=== PATIENT | male | born 1960 | race Caucasian/White ===

== ENCOUNTER 2020-03-20 08:35 | Outpatient (CLI) | payer BC, SELFPAY ==
--- NOTE | ~2020-03-20 | XR_ITS ---
EXAMINATION: XR chest 2V 03/20/2020 09:02 INDICATION: Cough and shortness of breath. Fever PROCEDURE: PA and lateral views of the chest COMPARISON: 08/07/2017 FINDINGS: The lungs are clear. The cardiomediastinal silhouette is within normal limits. There are no pleural effusions. There is no pneumothorax suspected. IMPRESSION: 1: NO ACUTE CARDIOPULMONARY DISEASE. Reviewed, dictated and finalized at location A.
[2020-03-20 08:59] LABS: Basophils Absolute Auto 0.1 K/mm3 (0.0-0.1); Basophils Percent Auto 1.3 % (0.2-1.2); Eosinophils Absolute Auto 0.1 K/mm3 (0-0.3); Eosinophils Percent Auto 1.3 % (0-4.4); Hemoglobin 15.8 g/dL (14.0-18.0); Immature Granulocyte Absolute 0.02 K/mm3 (0.00-0.031); Immature Granulocyte Percent A 0.4 % (0-0.5); Lymphocytes Absolute Auto 1.63 K/mm3 (0.9-3.2); Lymphocytes Percent Auto 29.3 % (18.3-44.2); Mean Corpuscular HGB Conc 32.9 g/dl (32-36); Mean Corpuscular Hemoglobin 28.4 pg (26-34); Mean Corpuscular Volume 86.3 fl (80-100); Mean Platelet Volume 9.7 fl (7.4-10.4); Monocytes Absolute Auto 0.4 K/mm3 (0.1-0.6); Monocytes Percent Auto 6.6 % (2.6-8.5); Neutrophils Absolute Auto 3.4 K/mm3 (1.3-6.7); Neutrophils Percent Auto 61.1 % (45.5-73.1); Platelet Count Result 299 k/mm3 (150-375); Red Blood Count 5.56 M/mm3 (4.6-6.20); Red Cell Distribution Width 12.4 % (11.5-14.5); White Blood Count 5.6 K/mm3 (4.5-10.0)
[2020-03-20 09:05] LABS: Alanine Aminotransferase 41 U/L (4-50); Albumin Level 4.4 g/dL (3.5-5.1); Alkaline Phosphatase 62 U/L (38-126); Anion Gap 8 mmol/L (8-16); Aspartate Amino Transferase 35 U/L (17-59); Bilirubin,Total 0.7 mg/dL (0.2-1.3); Blood Urea Nitrogen 19 mg/dL (9-20); Calcium 9.1 mg/dL (8.4-10.2); Carbon Dioxide 26 mmol/L (22-30); Chloride 103 mmol/L (98-107); Cholesterol 304 mg/dL (0-200); Estimated Glomerular Filt Rate > 60; Glucose 106 mg/dL (75-110); HDL Direct 51 mg/dL; Potassium 4.4 mmol/L (3.4-5.0); Sodium 137 mmol/L (137-145); Triglycerides 133 mg/dL (<150)
[2020-03-20 09:16] LABS: LDL Cholesterol Direct 210 mg/dL
[2020-03-20 09:35] LABS: Prostate Specific Antigen 1.2 ng/mL (< OR = 4.0)
[2020-03-20 09:45] LABS: Vitamin D 25 Hydroxy 80.8 ng/mL
[2020-03-25 10:43] LABS: Testosterone Free 53.4 pg/mL (35.0-155.0); Testosterone Total 456 ng/dL (250-1100)
== END 2020-03-20 08:36 | disposition home or self-care (01) ==
LOC: ANHLAB 08:38
PROVIDERS: PCP Family Medicine; Visit Provider Family Medicine
DX: E55.9 Vitamin D deficiency, unspecified (principal); R25.2 Cramp and spasm; R79.89 Other specified abnormal findings of blood chemistry; N40.0 Benign prostatic hyperplasia without lower urinary tract symptoms; E78.2 Mixed hyperlipidemia; R05 Cough
CPT/HCPCS: 36415; 71046; 80048; 80061; 80076; 82306; 83735; 84153; 84402; 84403; 84443; 85025; G0103

== ENCOUNTER 2020-05-04 14:13 | Outpatient (CLI) | payer BC, SELFPAY ==
--- NOTE | 2020-05-09 12:10 | WPDPFTINT ---
PFT Interpretation PFT Interpretation: This PFT met all criteria for ATS standards and reproducibility FEV/FVC post bronchodilator 82% FEV1 98% FVC 85% TLC 85% RV 71% RV/TLC 30% DLCO 90% when adjusted for alveolar volume but not adjusted for hemoglobin Flow volume loops were normal Impression: This is a normal PFT. Clinical correlation is advised.
== END 2020-05-04 14:14 | disposition home or self-care (01) ==
PROVIDERS: PCP Family Medicine; Visit Provider Family Medicine
DX: R05 Cough (principal)
CPT/HCPCS: 94060; 94726; 94729

== ENCOUNTER → 2020-06-28 16:37 | Outpatient (CLI) | payer BC, SELFPAY ==
--- NOTE | ~2020-06-28 | XR_ITS ---
XR chest 2V 06/28/2020 17:58 Indication: Dyspnea. Procedure: 2 view chest Comparison: 03/20/2020 Findings: Heart size normal. There is a subtle right upper lobe infiltrate. Left lung clear. No pleur al effusion or pneumothorax. No acute osseous abnormality. Impression: 1: Subtle right upper lobe infiltrate which may represent atelectasis or developing pneumonia. Reviewed, dictated and finalized at location A. 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
== END ==
PROVIDERS: PCP Family Medicine; Visit Provider Family Medicine
DX: R06.00 Dyspnea, unspecified (principal); R91.8 Other nonspecific abnormal finding of lung field
CPT/HCPCS: 71046

== ENCOUNTER → 2020-07-16 09:34 | Outpatient (CLI) | payer BC, SELFPAY ==
--- NOTE | ~2020-07-16 | XR_ITS ---
EXAMINATION: XR chest 2V 07/16/2020 10:01 INDICATION: Covid19 PROCEDURE: 2 view chest COMPARISON: Comparison to multiple prior studies sequentially, with oldest reviewed study dated 04/05. FINDINGS: The lungs are clear. The cardiomediastinal silhouette is within normal limits. There are no pleural effusions. There is no pneumothorax suspected. IMPRESSION: 1: NO ACUTE CARDIOPULMONARY DISEASE. Reviewed, dictated and finalized at location A. [employer]
== END ==
PROVIDERS: PCP Family Medicine; Visit Provider Nurse Practitioner Family
DX: U07.1 COVID-19 (principal)
CPT/HCPCS: 71046

== ENCOUNTER 2021-11-10 00:55 | Day surgery (SDC) | payer BC, SELFPAY ==
[2021-10-25 13:17] VITALS: BMI 28.0
--- NOTE | 2021-11-09 13:54 | P.HP_ITS ---
History of Present Illness History of Present Illness Consent: Risks, benefits, and alternatives have been discussed and questions answered. Patient agrees to proceed with procedure. Chief complaint: hx of colon polyps Narrative: Watson Flores is a 61 year old male referred for colon cancer screening. He had a tubular adenoma removed 5 years ago. Review of Systems Review of Systems: All systems reviewed & are unremarkable except as noted in HPI and below PMFSH Past Medical History Medical History BMI 28.0-28.9,adult Cough COVID-19 Cramps, muscle, general Dyspnea IBS (irritable bowel syndrome) Family History Family History Father Acute myocardial infarction Hypertension Mother Dementia Sibling No problems noted. 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 Gender identity (if verbalized by the patient): Male Spiritual care concerns: No Meds Home Medications and Allergies Home Medications Medication Instructions Recorded Confirmed Type escitalopram oxalate 10 mg tablet 10 mg PO DAILY #30 tablet 03/23/21 11/10/21 Rx lubiprostone 8 mcg capsule 8 mcg PO BID #60 cap 05/12/21 11/10/21 Rx cholecalciferol (vitamin D3) 125 125 mcg PO DAILY 10/03/21 11/10/21 History mcg (5,000 unit) capsule abmkeqskycjs-Fw-hqtb-minerals 18 1 tablet PO DAILY 10/03/21 11/10/21 History mg-0.4 mg tablet sodium,potassium,mag sulfates 17.5 See Rx Instructions PO .COMPLEX 10/12/21 11/10/21 Rx gram-3.13 gram-1.6 gram oral soln #354 ml Allergies Allergy/AdvReac Type Severity Reaction Status Date / Time amoxicillin Allergy Unknown [place]ushing Verified 11/10/21 07:02 clavulanic acid Allergy Unknown [place] Verified 11/10/21 07:02 levofloxacin Allergy Unknown Unknown Verified 11/10/21 07:02 potassium Allergy Unknown [place] Verified 11/10/21 07:02 Exam Const: General: alert Orientation/consciousness: patient oriented x3 Resp: Auscultation: clear to auscultation bilaterally Cardio: Rhythm: regular rhythm GI: GI Palp: Yes Soft to palpation and No Tenderness to palpation present (GI) Neuro: General: patient oriented x3 Assessment and Plan Assessment and plan (1) Colon cancer screening: Code(s): Z12.11 - Encounter for screening for malignant neoplasm of colon Status: Acute Assessment and Plan: Colonoscopy with possible biopsy or polypectomy or cautery or injection of substances.
[2021-11-10 07:04] VITALS: BP 105/90; PULSE 86; RESP 16; TEMP 35.7; O2SAT 99
[2021-11-10] MEDS: LACTATED RINGERS 1,000 ML 150 ML IV CONT (07:15)
--- NOTE | 2021-11-10 07:44 | P.PNAN_ITS ---
Anes - Initial Pre Proc Eval Procedure: Operation Date: 11/10/21 08:00 Proposed Procedures p Screening Colonoscopy - Daljit Mckay MD Date/Time: 11/10/21 07:44 Surgeon: Daljit Mckay MD Pre Op Diagnosis: hx of colon polyps Patient Data Age: 61 Gender: M Height: 1.75 m Weight: 87 kg Last Vital Signs Temp 35.7 C L 11/10/21 07:04 Pulse 86 11/10/21 07:04 Resp 16 11/10/21 07:04 BP 105/90 11/10/21 07:04 Pulse Ox 99 11/10/21 07:04 Allergies Allergy/AdvReac Type Severity Reaction Status Date / Time amoxicillin Allergy Unknown Flushing Verified 11/10/21 07:02 clavulanic acid Allergy Unknown [place] Verified 11/10/21 07:02 levofloxacin Allergy Unknown Unknown Verified 11/10/21 07:02 potassium Allergy Unknown Flushing Verified 11/10/21 07:02 Home Medications Medication Instructions Recorded Confirmed Type escitalopram oxalate 10 mg tablet 10 mg PO DAILY #30 tablet 03/23/21 11/10/21 Rx lubiprostone 8 mcg capsule 8 mcg PO BID #60 cap 05/12/21 11/10/21 Rx cholecalciferol (vitamin D3) 125 125 mcg PO DAILY 10/03/21 11/10/21 History mcg (5,000 unit) capsule wvtvzudgjuja-Rb-brwe-minerals 18 1 tablet PO DAILY 10/03/21 11/10/21 History mg-0.4 mg tablet sodium,potassium,mag sulfates 17.5 See Rx Instructions PO .COMPLEX 10/12/21 11/10/21 Rx gram-3.13 gram-1.6 gram oral soln #354 ml Patient hx anesthesia problems: none Family hx anesthesia problems: none Results Review: All pre-operative results and documents have been reviewed as part of the pre-operative evaluation. [facility] Past Medical History Medical History BMI 28.0-28.9,adult IBS (irritable bowel syndrome) Mixed hyperlipidemia Family History Family History Father Acute myocardial infarction Hypertension Mother Dementia Sibling No problems noted. 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 Informed Consent: The patient's anesthetic plan and its attendant risks and benefits were discussed with the patient/family/POA. Questions were solicited and answers provided to the satisfaction of the patient/family/POA.
[2021-11-10 08:13] VITALS: BP 90/65; PULSE 72; RESP 17; O2SAT 99
[2021-11-10 08:23] VITALS: BP 101/73; PULSE 71; RESP 17; O2SAT 99
[2021-11-10 08:33] VITALS: BP 139/97; PULSE 70; RESP 22; O2SAT 100
== END 2021-11-10 08:47 | disposition home or self-care (01) ==
PROVIDERS: PCP Family Medicine; Visit Provider Internal Medicine Gastroenterology
PROC: 0DJD8ZZ Inspection of Lower Intestinal Tract, Via Natural or Artificial Opening Endoscopic (ICD-10-PCS; CPT 45378; principal; 2021-11-10 08:00)
DX: Z12.11 Encounter for screening for malignant neoplasm of colon (principal); D12.0 Benign neoplasm of cecum; K58.9 Irritable bowel syndrome, unspecified; K57.30 Diverticulosis of large intestine without perforation or abscess without bleeding; K64.8 Other hemorrhoids; F17.290 Nicotine dependence, other tobacco product, uncomplicated
CPT/HCPCS: 45385; 88305; J2704; J7120

== ENCOUNTER 2021-11-16 19:04 | Emergency (ER) | payer BC, SELFPAY ==
--- NOTE | ~2021-11-16 | CT_ITS ---
EXAMINATION: CTA chest PE protocol DATE: 11/16/2021 21:34 INDICATION: dyspnea and elevated d dimer TECHNIQUE: Computed tomography angiography (CTA) of the chest was performed with 100 mL Omnipaque-350 intravenous contrast timed to evaluate the pulmonary arteries. Coronal maximum intensity projection 3D-reconstructions were created by the technologist. The dose-length product (DLP) was 389.97 mGy-cm. Automated exposure control and iterative reconstruction technique were employed. COMPARISON: X-ray chest, same date. FINDINGS: Study quality: Adequate. Pulmonary arteries: No pulmonary emboli detected. Thoracic aorta: Mild calcified and noncalcified arch plaque. Lung parenchyma and airways: Scattered groundglass opacities, taking on a somewhat gravitational/depe ndent distribution. Thoracic inlet, axillae and chest wall: Unremarkable. Mediastinum: Subcarinal and bilateral hilar lymphadenopathy. Heart and pericardium: Normal. Coronary artery calcifications: Absent. Pleura: Unremarkable. Upper abdomen: Cholecystectomy. Bones: No acute osseous finding. Old lower thoracic superior endplate deformity. IMPRESSION: No CT evidence of acute pulmonary embolus. Pulmonary findings may reflect very mild pulmonary edema, noting that acute hypersensitivity and atypical infection could appear similar. Mediastinal and hilar lymphadenopathy. Reviewed, dictated and finalized at location K.
--- NOTE | ~2021-11-16 | XR_ITS ---
EXAMINATION: XR chest 1V portable Exam Date/Time: 11/16/2021 19:20 CDT CLINICAL HISTORY: cough,DIZZY,SWEATS,VOMIT,WEAKNESS,XYESTERDAY,NO HX Comparison: 07/16/2020. RESULT: Lines, tubes, and devices: None. Lungs and pleura: Clear. Cardiomediastinal silhouette: Stable cardiomediastinal silhouette. Other: No acute osseous or upper abdominal finding. IMPRESSION: No acute cardiopulmonary process Reviewed, dictated and finalized at location K.
[2021-11-16 19:07] VITALS: BP 98/65; PULSE 110; RESP 16; TEMP 36.1; O2SAT 95
[2021-11-16 19:14] VITALS: PULSE 100
[2021-11-16 19:16] VITALS: BP 123/83; PULSE 100; RESP 22; O2SAT 95
--- NOTE | 2021-11-16 19:17 | ECG_ITS ---
Measurements Intervals [place] Rate: 89 P: 48 MI: 161 QRS: 28 QRSD: 89 T: 40 QT: 352 QTc: 430 Interpretive Statements SINUS RHYTHM NORMAL ECG Electronically Signed On 11-17-2021 6:34:54 CDT by Ga Messer D.O.
--- NOTE | 2021-11-16 19:18 | ED.WEAKNESS ---
HPI - Weakness General Chief complaint: Weakness Stated complaint: DIAPHORESIS,WEAK,N/V Time Seen by Provider: 11/16/21 19:12 Source: RN notes reviewed History of Present Illness HPI Narrative: Patient presents emergency department from home for weakness. Patient states he has not been feeling well for the past 2 days. He states has been having dizziness with ambulation he also states has been having a cough this been productive of yellow sputum. He states that he had 1 episode of posttussive emesis yesterday while at work he states he has had COVID 19 twice in the past but has not had COVID vaccinations he states he does currently use e-cigarettes he denies any measured fevers or chills, denies chest pain abdominal pain or diarrhea states he does feel short of breath. He denies having any abdominal pain Related Data Home Medications Medication Instructions Recorded Confirmed cholecalciferol (vitamin D3) 125 125 mcg PO DAILY 10/03/21 11/10/21 mcg (5,000 unit) capsule xzstlhuypdyb-Mp-vypd-minerals 18 1 tablet PO DAILY 10/03/21 11/10/21 mg-0.4 mg tablet Allergies Allergy/AdvReac Type Severity Reaction Status Date / Time amoxicillin Allergy Unknown Flushing Verified 11/16/21 19:11 clavulanic acid Allergy Unknown [place] Verified 11/16/21 19:11 levofloxacin Allergy Unknown Unknown Verified 11/16/21 19:11 potassium Allergy Unknown [place]ushing Verified 11/16/21 19:11 Review of Systems Review of Systems: Gen.: Denies fevers or chills Eyes: Denies eye pain or visual change ENT: Denies congestion Respiratory: See HPI CV: Denies chest pain or palpitations GI: Denies abdominal pain diarrhea, reports nausea vomiting x1 yesterday Musculoskeletal: Denies back pain or muscle pain Neuro: Denies numbness, tingling, weakness or focal weakness Skin: Denies rash Except as documented, all other systems reviewed and negative PMFSH Past Medical History Medical History BMI 28.0-28.9,adult IBS (irritable bowel syndrome) Mixed hyperlipidemia Family History Family History Father Acute myocardial infarction Hypertension Mother Dementia Sibling No problems noted. 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 CARDIOVASCULAR: Regular rate and rhythm without murmurs rubs or gallops. ABDOMINAL: Soft, nontender, nondistended, no rebound or guarding MUSCULOSKELETAl: Moves all extremities. No clubbing, cyanosis or edema. NEURO: Awake and alert. Following commands, speech normal, no focal deficits SKIN:: Warm, dry. No rashes lesions or abrasions PSYCHIATRIC: Normal affect/mood, Course Course Emergency Course: Patient feeling better at this time Discussed with patient results of workup and diagnosis. Discussed need for follow-up with primary care, proper use of medication, and reasons to return to the emergency department. Patient understands and agrees to current treatment plan Vital Signs Vital signs: Vital Signs Temperature 97 F L 11/16/21 19:07 Pulse Rate 110 H 11/16/21 19:07 Respiratory Rate 16 11/16/21 19:07 Blood Pressure 98/65 L 11/16/21 19:07 Pulse Oximetry 95 11/16/21 19:07 Temperature 97 F L 11/16/21
[2021-11-16] MEDS: SODIUM CHLORIDE 0.9% IV 1,000 ML 999 ML IV CONT ×2 (19:44→23:33)
[2021-11-16 19:46] LABS: Basophils Absolute Auto 0.1 K/mm3 (0.0-0.1); Basophils Percent Auto 1.5 % (0.2-1.2); Eosinophils Absolute Auto 0.3 K/mm3 (0-0.3); Eosinophils Percent Auto 4.7 % (0-4.4); Hematocrit 41.8 % (42.0-52.0); Hemoglobin 13.8 g/dL (14.0-18.0); Immature Granulocyte Absolute 0.01 K/mm3 (0.00-0.031); Immature Granulocyte Percent A 0.2 % (0-0.5); Lymphocytes Absolute Auto 1.38 K/mm3 (0.9-3.2); Mean Corpuscular Volume 87.8 fl (80-100); Mean Platelet Volume 10.4 fl (7.4-10.4); Monocytes Absolute Auto 0.5 K/mm3 (0.1-0.6); Monocytes Percent Auto 9.1 % (2.6-8.5); Neutrophils Absolute Auto 3.3 K/mm3 (1.3-6.7); Neutrophils Percent Auto 59.5 % (45.5-73.1); Platelet Count Result 269 k/mm3 (150-375); Red Blood Count 4.76 M/mm3 (4.6-6.20); Red Cell Distribution Width 12.2 % (11.5-14.5); White Blood Count 5.5 K/mm3 (4.5-10.0)
[2021-11-16 19:54] LABS: Prothrombin Time 13.1 Seconds (11.1-14.7)
[2021-11-16 19:59] LABS: Alanine Aminotransferase 30 U/L (6-50); Albumin Level 4.1 g/dL (3.5-5.1); Alkaline Phosphatase 67 U/L (38-126); Anion Gap 11 mmol/L (8-16); Aspartate Amino Transferase 31 U/L (17-59); Bilirubin,Total 0.2 mg/dL (0.2-1.3); Blood Urea Nitrogen 22 mg/dL (9-20); Calcium 8.5 mg/dL (8.4-10.2); Carbon Dioxide 21 mmol/L (22-30); Chloride 107 mmol/L (98-107); Estimated CRCL calculation 50 ml/min; Estimated Glomerular Filt Rate 52; Glucose 138 mg/dL (65-110); Lipase 93 U/L (23-300); Potassium 3.6 mmol/L (3.4-5.0); Sodium 139 mmol/L (137-145)
[2021-11-16 20:00] LABS: Lactic Acid Reflex 1.8 mmol/L (0.7-2.0)
[2021-11-16 20:45] LABS: Influenza A QL RT-PCR Negative (Negative); Influenza B QL RT-PCR Negative (Negative); SARS-CoV-2 RNA PCR Negative
[2021-11-16 20:58] LABS: Appearance Urine Clear (Clear); Bilirubin Urine Negative (Negative); Blood Urine Trace-lysed (Negative); Color Urine Yellow (Yellow); Glucose Urine UA Negative (Negative); Ketones Urine Trace mg/dL (Negative); Leukocyte Esterase Ur Negative LEU/UL (Negative); Nitrate Urine Negative (Negative); Protein Urine Negative (Negative); Specific Grav Ur 1.025 (1.001-1.035); Urobilinogen Urine 0.2 mg/dL (<2.0); pH Urine 5.5 (5.0-9.0)
[2021-11-16 21:01] LABS: Bacteria Urine Trace /hpf; Mucus Urine Few /lpf; Squamous Epithelial Cell Urine Rare /hpf (Few)
[2021-11-16 21:02] LABS: Add Urine Microscopic? YES
[2021-11-16 21:13] LABS: D Dimer 0.66 ug/mL (<0.48)
[2021-11-16 21:51] VITALS: BP 152/92; PULSE 80
[2021-11-16 21:52] VITALS: BP 164/95; PULSE 82
[2021-11-16 21:55] VITALS: BP 155/96; PULSE 88
[2021-11-16 22:28] LABS: NT Pro B Type Natriuretic Pept 79 pg/mL (5-100); Troponin I 0.025 ng/mL (0.000-0.034)
[2021-11-16 23:19] LABS: Troponin I < 0.012 ng/mL (0.000-0.034)
[2021-11-16] MEDS: ACETAMINOPHEN 500 MG TABLET 1000 MG PO (23:56)
[2021-11-17] MEDS: DOXYCYCLINE HYCLATE 100 MG TABLET PO (00:16)
[2021-11-17 00:54] VITALS: BP 120/72; PULSE 72; RESP 16; O2SAT 100
== END 2021-11-17 00:56 | disposition home or self-care (01) ==
PROVIDERS: Emergency Provider Emergency Medicine; PCP Family Medicine
DX: J18.9 Pneumonia, unspecified organism (principal); N28.9 Disorder of kidney and ureter, unspecified; Z20.822 Contact with and (suspected) exposure to COVID-19; Z86.16 Personal history of COVID-19; Z28.310 Unvaccinated for COVID-19; E78.2 Mixed hyperlipidemia; K58.9 Irritable bowel syndrome, unspecified; Z87.891 Personal history of nicotine dependence
CPT/HCPCS: 36415; 71045; 71275; 80053; 81001; 83605; 83690; 83880; 84484; 85025; 85380; 85610; 85730; 87040; 87502; 93005; 96360; 96361; 99284; A9270; C9803; J7030; Q9967; U0003; U0005

== ENCOUNTER → 2021-11-30 15:38 | Outpatient (CLI) | payer BC, SELFPAY ==
--- NOTE | ~2021-11-30 | XR_ITS ---
EXAMINATION: XR chest 2V 11/30/2021 15:45 INDICATION: Dyspnea. Dehydration. PROCEDURE: 2 view chest COMPARISON: Comparison to multiple prior studies sequentially, with oldest reviewed study dated 03/20. FINDINGS: The lungs are clear. The cardiomediastinal silhouette is within normal limits. There are no pleural effusions. There is no pneumothorax suspected. IMPRESSION: 1: NO ACUTE CARDIOPULMONARY DISEASE. Reviewed, dictated and finalized at location A.
== END ==
PROVIDERS: PCP Family Medicine; Visit Provider Nurse Practitioner Family
DX: E86.0 Dehydration (principal); J06.9 Acute upper respiratory infection, unspecified
CPT/HCPCS: 71046

== ENCOUNTER → 2022-01-27 14:20 | Outpatient (CLI) | payer BC, SELFPAY ==
--- NOTE | ~2022-01-27 | MR_ITS ---
EXAMINATION: MR knee LT wo con DATE: 01/27/2022 14:52 INDICATION: Primary osteoarthritis of left knee. Left knee pain. TECHNIQUE: Magnetic resonance imaging (MRI) of the left knee was performed without intravenous contra st. COMPARISON: Left knee MRI 04/14/2011 FINDINGS: Medial compartment: There is an upper surface horizontal tear of body and posterior horn of medial meniscus. There is ful l-thickness cartilage loss of tibial condyle anteromedially with mild subchondral edema-like marrow s ignal intensity. There is extensive partial thickness cartilage loss of tibial condyle and femoral co ndyle. There is full-thickness cartilage loss of femoral condyle medially with moderate subchondral e quan-like marrow signal intensity. Osteophytes are noted. Lateral compartment: There is a vertical tear of posterior horn of lateral meniscus. There is shallow partial-thickness ca rtilage loss of tibial condyle and femoral condyle. Osteophytes are noted. Patellofemoral compartment: There is deep partial thickness cartilage loss of patellar medial facet. There is deep cartilage fiss uring of patellar lateral facet. There is deep partial thickness cartilage loss of central and medial trochlea. Osteophytes are noted. Ligaments and tendons: There are changes of anterior cruciate ligament reconstruction. The graft is intact. Posterior crucia te ligament is intact. Medial collateral ligament and lateral collateral ligament complex are intact. There is mild patellar tendinopathy. There is a graft donor site involving the middle third of serna lar tendon. Fluid: There is a small knee joint effusion. There is mild superficial infrapatellar bursitis. IMPRESSION: 1. Severe chondrosis of medial compartment, moderate chondrosis of patellofemoral compartment, and mi ld chondrosis of lateral compartment. 2. Tears of medial and lateral menisci. 3. Intact anterior fusion ligament reconstruction. 4. Small knee joint effusion. Reviewed, dictated and finalized at location A. IMPRESSION: 1. Severe chondrosis of medial compartment, moderate chondrosis of patellofemor al compartment, and mild chondrosis of lateral compartment. 2. Tears of medial and lateral menisci. 3. Intact anterior fusion ligament reconstruction. 4. Small knee joint effusion.
== END ==
PROVIDERS: PCP Family Medicine
DX: M17.12 Unilateral primary osteoarthritis, left knee (principal); M22.2X2 Patellofemoral disorders, left knee; S83.242A Other tear of medial meniscus, current injury, left knee, initial encounter; S83.282A Other tear of lateral meniscus, current injury, left knee, initial encounter; M25.462 Effusion, left knee
CPT/HCPCS: 73721

== ENCOUNTER 2022-10-11 12:34 | Outpatient (CLI) | payer BC, SELFPAY ==
--- NOTE | ~2022-10-11 | XR_ITS ---
EXAMINATION: XR chest 2V Exam Date/Time: 10/11/2022 12:50 CDT HISTORY: Z01.818 - PRE OP CHECK UP FOR KNEE SURGERY Comparison: 11/30/2021. RESULT: Lines, tubes, and devices: Cholecystectomy clips. Lungs and pleura: Clear. Cardiomediastinal silhouette: Stable. Prominent central pulmonary arteries as can be seen with pulmo nary arterial hypertension. Other: No acute osseous or upper abdominal finding. IMPRESSION: No acute cardiopulmonary process. Reviewed, dictated and finalized at location K.
--- NOTE | 2022-10-11 13:26 | ECG_ITS ---
Measurements Intervals [place] Rate: 69 P: 46 VT: 154 QRS: 1 QRSD: 90 T: 4 QT: 379 QTc: 406 Interpretive Statements SINUS RHYTHM INFERIOR MYOCARDIAL INFARCTION , PROBABLY OLD WITH POSTERIOR EXTENSION [40+ ms Q WAVE AND/OR ST/T ABNORMALITY IN II/aVFPROMINE ABNORMAL ECG COMPARED TO ECG 11/16/2021 20:19:59 MYOCARDIAL INFARCT FINDING NOW PRESENT Electronically Signed On 10-11-2022 13:54:52 CDT by Phong Larios M.D.
[2022-10-11 14:06] LABS: Basophils Absolute Auto 0.1 K/mm3 (0.0-0.1); Basophils Percent Auto 1.6 % (0.2-1.2); Eosinophils Absolute Auto 0.2 K/mm3 (0-0.3); Eosinophils Percent Auto 3.8 % (0-4.4); Hematocrit 44.3 % (42.0-52.0); Hemoglobin 14.9 g/dL (14.0-18.0); Immature Granulocyte Absolute 0.01 K/mm3 (0.00-0.031); Immature Granulocyte Percent A 0.2 % (0-0.5); Lymphocytes Percent Auto 32.4 % (18.3-44.2); Mean Corpuscular HGB Conc 33.6 g/dl (32-36); Mean Corpuscular Hemoglobin 29.6 pg (26-34); Mean Corpuscular Volume 87.9 fl (80-100); Mean Platelet Volume 10.5 fl (7.4-10.4); Monocytes Absolute Auto 0.5 K/mm3 (0.1-0.6); Monocytes Percent Auto 8.3 % (2.6-8.5); Neutrophils Percent Auto 53.7 % (45.5-73.1); Platelet Count Result 298 k/mm3 (150-375); Red Blood Count 5.04 M/mm3 (4.6-6.20); Red Cell Distribution Width 11.9 % (11.5-14.5); White Blood Count 5.6 K/mm3 (4.5-10.0)
[2022-10-11 14:18] LABS: Anion Gap 10 mmol/L (8-16); Blood Urea Nitrogen 24 mg/dL (9-20); Calcium 8.9 mg/dL (8.4-10.2); Carbon Dioxide 24 mmol/L (22-30); Chloride 103 mmol/L (98-107); Estimated Glomerular Filt Rate > 60; Glucose 80 mg/dL (65-110); Potassium 4.2 mmol/L (3.4-5.0); Sodium 137 mmol/L (137-145)
== END 2022-10-11 12:35 | disposition home or self-care (01) ==
PROVIDERS: PCP Family Medicine; Visit Provider Physician Assistant Medical
DX: R73.09 Other abnormal glucose (principal); R03.0 Elevated blood-pressure reading, without diagnosis of hypertension; Z01.818 Encounter for other preprocedural examination; R94.31 Abnormal electrocardiogram [ECG] [EKG]
CPT/HCPCS: 36415; 71046; 80048; 85025; 93005

== ENCOUNTER 2022-10-18 15:09 | Emergency (ER) | payer BC, SELFPAY ==
--- NOTE | ~2022-10-18 | XR_ITS ---
EXAMINATION: XR chest 1V 10/18/2022 15:56 INDICATION: Chest pain PROCEDURE: 2 view chest COMPARISON: Comparison to multiple prior studies sequentially, with oldest reviewed study dated 02/2021. FINDINGS: The lungs are clear. The cardiomediastinal silhouette is within normal limits. There are no pleural effusions. There is no pneumothorax suspected. IMPRESSION: 1: NO ACUTE CARDIOPULMONARY DISEASE. Reviewed, dictated and finalized at location B.
[2022-10-18 15:17] VITALS: BP 132/97; PULSE 82; RESP 18; TEMP 36.4; O2SAT 98
--- NOTE | 2022-10-18 15:21 | ECG_ITS ---
Measurements Intervals [place] Rate: 81 P: 40 SD: 150 QRS: 7 QRSD: 87 T: 55 QT: 358 QTc: 417 Interpretive Statements SINUS RHYTHM POSSIBLE LEFT ATRIAL ENLARGEMENT [-0.1mV P WAVE IN V1/V2] COMPARED TO ECG 10/11/2022 13:33:31 NO SIGNIFICANT CHANGES Electronically Signed On 10-18-2022 18:25:02 CDT by Clarence Horton M.D.
[2022-10-18 15:36] LABS: Basophils Absolute Auto 0.1 K/mm3 (0.0-0.1); Basophils Percent Auto 1.3 % (0.2-1.2); Eosinophils Absolute Auto 0.3 K/mm3 (0-0.3); Hematocrit 44.4 % (42.0-52.0); Immature Granulocyte Absolute 0.01 K/mm3 (0.00-0.031); Immature Granulocyte Percent A 0.2 % (0-0.5); Lymphocytes Absolute Auto 1.99 K/mm3 (0.9-3.2); Lymphocytes Percent Auto 32.3 % (18.3-44.2); Mean Corpuscular HGB Conc 33.8 g/dl (32-36); Mean Corpuscular Hemoglobin 29.7 pg (26-34); Mean Corpuscular Volume 87.9 fl (80-100); Mean Platelet Volume 10.3 fl (7.4-10.4); Monocytes Absolute Auto 0.4 K/mm3 (0.1-0.6); Monocytes Percent Auto 6.3 % (2.6-8.5); Neutrophils Absolute Auto 3.4 K/mm3 (1.3-6.7); Neutrophils Percent Auto 54.9 % (45.5-73.1); Platelet Count Result 263 k/mm3 (150-375); Red Blood Count 5.05 M/mm3 (4.6-6.20); Red Cell Distribution Width 11.9 % (11.5-14.5); White Blood Count 6.2 K/mm3 (4.5-10.0)
[2022-10-18 15:49] LABS: Alanine Aminotransferase 31 U/L (6-50); Albumin Level 4.4 g/dL (3.5-5.1); Alkaline Phosphatase 74 U/L (38-126); Anion Gap 7 mmol/L (8-16); Aspartate Amino Transferase 28 U/L (17-59); Bilirubin,Total 0.4 mg/dL (0.2-1.3); Blood Urea Nitrogen 22 mg/dL (9-20); Calcium 8.7 mg/dL (8.4-10.2); Carbon Dioxide 26 mmol/L (22-30); Chloride 103 mmol/L (98-107); Estimated Glomerular Filt Rate > 60; Glucose 120 mg/dL (65-110); Potassium 3.9 mmol/L (3.4-5.0); Sodium 136 mmol/L (137-145)
[2022-10-18 16:00] LABS: Troponin I < 0.012 ng/mL (0.000-0.034)
[2022-10-18 16:06] LABS: INR 0.9; Prothrombin Time 12.2 Seconds (11.1-14.7)
[2022-10-18 16:12] LABS: Partial Thromboplastin Time 27.5 SECONDS (22.3-36.8)
[2022-10-18 19:12] VITALS: O2SAT 100
[2022-10-18 19:16] VITALS: PULSE 70
--- NOTE | 2022-10-18 19:50 | ED.GENADULT ---
HPI - General Adult General Chief complaint: Chest Pain Stated complaint: chest pain Time Seen by Provider: 10/18/22 19:13 History of Present Illness HPI narrative: Patient is 62-year-old gentleman who presents the emergency department with chief complaint of chest pain. Patient reports that he recently was scheduled to get an EKG as an outpatient for preoperative clearance for a knee surgery patient reports that he was told his EKG was abnormal and he was going to need to follow-up with cardiology prior to surgery patient reports he has an appointment scheduled on Sunday for this since being told that his EKG was abnormal he did notice that he has been having episodes where he has discomfort in his chest. The patient states that this is actually been going on for some time but started to pay more attention to it patient states that today he had an episode and reports that he decided to come to the emergency department to be evaluated. The patient reports at this exact time the pain is resolved Related Data Home Medications Medication Instructions Recorded Confirmed cholecalciferol (vitamin D3) 125 125 mcg PO DAILY 10/03/21 09/25/22 mcg (5,000 unit) capsule xqbeghxudtpm-Ur-qfrv-minerals 18 1 tablet PO DAILY 10/03/21 09/25/22 mg-0.4 mg tablet (Maximum Daily Multivitamin) citalopram 10 mg tablet 5 mg PO DAILY 09/25/22 09/25/22 coenzyme Q10-red yeast rice 25 cap PO 09/25/22 09/25/22 mg-600 mg capsule meloxicam 15 mg tablet 15 mg PO DAILY 09/25/22 09/25/22 vitamin B complex (B 1 tablet PO DAILY 09/25/22 09/25/22 Complex-Vitamin B12 tablet) Allergies Allergy/AdvReac Type Severity Reaction Status Date / Time amoxicillin Allergy Unknown Flushing Verified 09/25/22 17:05 clavulanic acid Allergy Unknown [place] Verified 09/25/22 17:05 levofloxacin Allergy Unknown Unknown Verified 09/25/22 17:05 potassium Allergy Unknown Flushing Verified 09/25/22 17:05 Review of Systems Review of Systems: A 10 system review of systems was completed on the patient and is negative except for what is stated in the HPI. Nursing and ancillary documentation was reviewed. PMFSH Past Medical History Medical History Abnormal electrocardiogram [ECG] [EKG] BMI 28.0-28.9,adult IBS (irritable bowel syndrome) Mixed hyperlipidemia Family History Family History Father Acute myocardial infarction Hypertension Mother Dementia Sibling No problems noted. Other Malignant neoplasm of prostate Social History Social History Smoking status: Former smoker (vapes now) Tobacco type: e-cigarettes/vaping Second hand tobacco smoke exposure: No Smoking end date: 07/09/10 Alcohol intake: former Substance use: never Substance use type: does not use Lack of Transportation: No Lack of Food: Never True Current Housing: I Have Housing Concerned About Future Housing: No Difficulty Paying Gas/Electric Bills: No Difficulty Paying for Meds: No Currently Unemployed: No Education: High School Diploma/GED Difficulty w/ Childcare or Family Care: No Living arrangements: with family Occupation/Education: occupation 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 HEAD: Normocephalic, atraumatic. EYES: PERRLA and EOMI. ENT: Nares clear, no rhinorrhea or epistaxis. Mucous membranes moist. NECK: Supple. CHEST: Clear to auscultation. No respiratory distress. HEART: Regular rate and rhythm. No murmur heard. Normal peripheral pulses. ABDOMEN: Soft, nontender, nondistended, normal active bowel sounds. EXTREMITIES: Normal range of motion. No edema. SKI
[2022-10-18 19:57] LABS: Troponin I < 0.012 ng/mL (0.000-0.034)
[2022-10-18 20:55] VITALS: BP 172/110; PULSE 65; RESP 18; O2SAT 97
[2022-10-18] MEDS: lisinopriL 10 MG TABLET PO (21:09)
[2022-10-18 21:30] VITALS: BP 162/113; PULSE 71; RESP 15; TEMP 37; O2SAT 99
== END 2022-10-18 21:44 | disposition home or self-care (01) ==
PROVIDERS: Emergency Medicine; Emergency Provider Emergency Medicine; PCP Family Medicine
DX: R07.89 Other chest pain (principal); I10 Essential (primary) hypertension; E78.2 Mixed hyperlipidemia; K58.9 Irritable bowel syndrome, unspecified; F17.290 Nicotine dependence, other tobacco product, uncomplicated; R94.31 Abnormal electrocardiogram [ECG] [EKG]
CPT/HCPCS: 36415; 71045; 80053; 84484; 85025; 85610; 85730; 93005; 99284; A9270

== ENCOUNTER 2022-12-27 13:53 | Outpatient (CLI) | payer BC, SELFPAY ==
--- NOTE | ~2022-12-27 | XR_ITS ---
XR chest 2V 12/27/2022 14:13 Indication: Chronic cough. Covid. Procedure: PA and lateral views the chest Comparison: 10/18/2022 Findings: There is a focal opacity of the right upper thorax in the perihilar location. Heart size no rmal. Left lung clear. No pleural effusion, edema or pneumothorax. Impression: 1: Focal nodular opacity right perihilar location. Recommend correlation with CT chest to differentia te between parenchymal nodule and focal airspace consolidation. Reviewed, dictated and finalized at location [] Impression: 1: Focal nodular opacity right perihilar location. Recommend correlation with C T chest to differentiate between parenchymal nodule and focal airspace consolid ation.
--- NOTE | ~2022-12-27 | XR_ITS ---
AP and lateral views of the right hip Clinical history: Pain Findings: No acute fracture or dislocation is seen. Osseous alignment is anatomic. There is minimal d egenerative spurring at the superolateral acetabular margin. Right hip joint space is preserved. Soft tissues are unremarkable. Impression: Minimal spurring superolateral right acetabular margin. Reviewed, dictated and finalized at [facility]. Impression: Minimal spurring superolateral right acetabular margin.
== END 2022-12-27 13:54 | disposition home or self-care (01) ==
PROVIDERS: PCP Family Medicine; Visit Provider Family Medicine
DX: R05.3 Chronic cough (principal); M25.551 Pain in right hip
CPT/HCPCS: 71046; 73502

== ENCOUNTER 2023-01-04 07:35 | Outpatient (CLI) | payer BC, SELFPAY ==
--- NOTE | ~2023-01-04 | CT_ITS ---
CT Scan of the Chest without Contrast: Clinical Indication: Abnormal chest x-ray Technique: Contiguous sections were acquired throughout the chest without intravenous contrast. Dose reduction technique was used on this scan by utilizing automated exposure control and iterative recon struction technique. The dose-length product (DLP) was 204.24 mGy-cm. COMPARISON: CT scan dated 11/16/2021, chest x-ray dated 12/27/2022 Findings: There is no evidence of any significant mediastinal, hilar or axillary lymphadenopathy. The mediastin al soft tissues appear normal. There is no evidence of pleural or pericardial effusion. The lungs are clear. No pulmonary nodules or infiltrates are noted. Images through the upper abdomen reveal no abnormalities. Impression: Clear lungs. No significant abnormality seen. Reviewed, dictated and finalized at [facility]. Impression: Clear lungs. No significant abnormality seen.
== END 2023-01-04 07:36 | disposition home or self-care (01) ==
PROVIDERS: PCP Family Medicine; Visit Provider Nurse Practitioner Family
DX: R91.8 Other nonspecific abnormal finding of lung field (principal)
CPT/HCPCS: 71250

== ENCOUNTER 2023-01-30 08:42 | Outpatient (CLI) | payer BC, SELFPAY ==
--- NOTE | 2023-02-12 21:52 | WPDHOMESLEEP ---
Sleep Study - Home Unattended Date of Study: 01/30/23 Ordering Provider: Don Hanson MD Interpreting Provider: Nery Montero MD Home Sleep Study Type: Watch PAT Height: 1.75 m Weight: 83.915 kg Body Mass Index: 27.3 Neck Circumference (inches): 16 [place]: 16 Reason for Sleep Study Hypersomnolence Sleep History Watson Flores is a 62-year-old man with a long history of snoring. He has used juke-nli-ddshpek medications including melatonin to help with sleep. There is a family history of sleep issues, both parents had problems. the patient does not awaken from sleep feeling short of breath. Frequently awakens at night with heartburn, belching or coughing. He frequently snores and frequently is loud enough that others complain about it. Frequently has trouble sleeping with a cold. He does not wake up gasping for breath at night. Does not have breathing problems at night observed by others. He occasionally sweats excessively at night. He does not notice his heart pounding or beating irregularly at night. He frequently falls asleep during the day, never falls asleep involuntarily or while driving. He does not have loss of muscle tone with strong emotion. He frequently has daytime problems due to sleepiness. 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 He does not feel paralyzed on waking or falling asleep. He rarely has vivid dreamlike scenes on waking or falling asleep. He does not feel afraid to go to sleep. He rarely has nightmares. He frequently remembers his dreams. He does not have racing thoughts. He does not feel sad, depressed or anxious. Frequently has muscular tension. He frequently notices parts of his body jerking. He frequently kicks at night. He frequently has crawling and aching feelings in his legs. He frequently has leg pain at night. He does not have morning jaw pain nor does he grind his teeth at night. Frequently is bothered by pain during the day. He frequently is awakened by pain at night. He constantly wakes up feeling stiff in the morning. On occasion he wakes up with sore achy muscles. He constantly wakes up with pain in the neck and spine. He has fatigue, headaches, he takes antacids regularly. Normal bedtime is 9:00 p.m., falling asleep quickly, typically waking 4-5 times during the night to go to the bathroom, stretch and reposition. On average these awakenings last 10 minutes. His normal wake time is 8:00 a.m.. Out of being in bed 11 hours at night he only gets 5 hours of sleep. He takes naps in the afternoon or evening. A short nap lasting 10 or 15 minutes does not feel refreshing. He is usually drowsy for an hour after waking. He feels better in the morning compared to other times a day. Habits: The patient does not smoke cigarettes any longer. He vapes a cartridge per day. Caffeine: 2 cups of coffee in the morning and a small Pepsi in the afternoon. No alcohol, and no recreational substances. [facility] Past Medical History Medical History (Updated 02/12/23 @ 22:19 by Nery Montero MD) Abnormal electrocardiogram [ECG] [EKG] BMI 27.0-27.9,adult BMI 28.0-28.9,adult Chronic cough GERD (gastroesophageal reflux disease) IBS (irritable bowel syndrome) Mixed hyperlipidemia Surgical History Surgical History S/P coronary artery stent placement Family History Family History Father Acute myocardial infarction Hypertension Mother Dementia Sibling No problems noted. Other Malignant neoplasm of prostate Social History Social History Smoking status: Former smoker (vapes now) Tobacco type: e-cigarettes/vaping Second hand tobacco smoke exposure: No Smoking end date: 07/09/10 Alcohol intake: former Substance use: never Substance use type: does not use Lack of Transportation: No Lack of Fo
[2023-02-12 21:54] VITALS: BMI 27.3
== END 2023-01-31 12:33 | disposition home or self-care (01) ==
LOC: ANHCSM 08:43
PROVIDERS: PCP Family Medicine; Visit Provider Family Medicine
DX: G47.30 Sleep apnea, unspecified (principal); G47.33 Obstructive sleep apnea (adult) (pediatric)
CPT/HCPCS: 95800

== ENCOUNTER 2023-02-16 09:10 | Outpatient (CLI) | payer BC, SELFPAY ==
--- NOTE | 2023-03-05 21:15 | WPDSLEEPSTUD ---
Sleep Study Date of Study: 02/16/23 Ordering Provider: Don Hanson MD Interpreting Physician: Nery Montero MD Sleep Study Type: CPAP Titration Height: 1.75 m Weight: 86.183 kg Body Mass Index: 28.0 Neck Circumference (inches): 16 [place]: 16 Reason for Sleep Study * 01/30/2023 Home sleep test showing moderate obstructive sleep apnea, AHI is 20.9; central AHI is 7.1, consistent with mixed sleep apnea; desaturation to 83%. He has a history of frequent uncomfortable feelings in his legs at night and he reports frequently kicking at night. HST does not give information re: leg movements. Sleep History Watson Flores is a 62-year-old man with a long history of snoring.? He has used vuud-guj-puvhocb medications including melatonin to help with sleep.? There is a family history of sleep issues, both parents had problems. ? the patient does not awaken from sleep feeling short of breath.? Frequently awakens at night with heartburn, belching or coughing.? He frequently snores and frequently is loud enough that others complain about it.? Frequently has trouble sleeping with a cold.? He does not wake up gasping for breath at night.? Does not have breathing problems at night observed by others.? He occasionally sweats excessively at night.? He does not notice his heart pounding or beating irregularly at night.? He frequently falls asleep during the day, never falls asleep involuntarily or while driving.? He does not have loss of muscle tone with strong emotion.? He frequently has daytime problems due to sleepiness.? 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 He does not feel paralyzed on waking or falling asleep.? He rarely has vivid dreamlike scenes on waking or falling asleep.? He does not feel afraid to go to sleep.? He rarely has nightmares.? He frequently remembers his dreams.? He does not have racing thoughts.? He does not feel sad, depressed or anxious.? Frequently has muscular tension.? He frequently notices parts of his body jerking.? He?frequently kicks at night.? He frequently has crawling and aching feelings in his legs.? He frequently has leg pain at night.? He does not have morning jaw pain nor does he grind his teeth at night.? Frequently is bothered by pain during the day.? He frequently is awakened by pain at night.? He constantly wakes up feeling stiff in the morning.? On occasion he wakes up with sore achy muscles.? He constantly wakes up with pain in the neck and spine.? He has fatigue, headaches, he takes antacids regularly. Normal bedtime is ? 9:00 p.m., falling asleep quickly, typically waking 4-5 times during the night to go to the bathroom, stretch and reposition.? On average these awakenings last 10 minutes.? His normal wake time is 8:00 a.m..? Out of being in bed 11 hours at night he only gets 5 hours of sleep. ? He takes naps in the afternoon or evening.? A short nap lasting 10 or 15 minutes does not feel refreshing.? He is usually drowsy for an hour after waking.? He feels better in the morning compared to other times a day. Habits:? ? The patient does not smoke cigarettes any longer.? He vapes a cartridge per day.? Caffeine: 2 cups of coffee in the morning and a small Pepsi in the afternoon.? No alcohol, and no recreational substances. [facility] Past Medical History Medical History Abnormal electrocardiogram [ECG] [EKG] BMI 27.0-27.9,adult BMI 28.0-28.9,adult Chronic cough GERD (gastroesophageal reflux disease) IBS (irritable bowel syndrome) Mixed hyperlipidemia Surgical History Surgical History S/P coronary artery stent placement Family History Family History Father Acute myocardial infarction Hypertension Mother Dementia Sibling No problems noted. Other Malignant neoplasm of prostate Social History Social History (Reviewed 03/05/23 @ 21:18 by Shirley
[2023-03-05 21:40] VITALS: BMI 28.0
== END 2023-02-17 07:27 | disposition home or self-care (01) ==
LOC: ANHCSM 09:13
PROVIDERS: PCP Family Medicine; Visit Provider Family Medicine
DX: G47.33 Obstructive sleep apnea (adult) (pediatric) (principal)
CPT/HCPCS: 95811

== ENCOUNTER 2023-11-14 07:10 | Outpatient (CLI) | payer BC, SELFPAY ==
--- NOTE | ~2023-11-14 | XR_ITS ---
Clinical Indication: Atherosclerotic disease PA and lateral views of the chest: Comparison: 12/27/2022 Findings: The lungs are clear, without evidence of focal consolidation or pleural effusion. Cardiome diastinal silhouette is within normal limits. Bones and soft tissues are unremarkable. Impression: Normal chest. Reviewed, dictated and finalized at location . Impression: Normal chest.
--- NOTE | 2023-11-14 07:56 | ECG_ITS ---
SEE SCANNED COPY FOR CONFIRMED REPORT MTDD
[2023-11-14 08:32] LABS: Alanine Aminotransferase 28 U/L (6-50); Albumin Level 4.5 g/dL (3.5-5.1); Alkaline Phosphatase 70 U/L (38-126); Anion Gap 7 mmol/L (4-12); Aspartate Amino Transferase 26 U/L (17-59); Bilirubin,Total 0.6 mg/dL (0.2-1.3); Blood Urea Nitrogen 14 mg/dL (9-20); Calcium 9.3 mg/dL (8.4-10.2); Carbon Dioxide 26 mmol/L (22-30); Chloride 107 mmol/L (98-107); Estimated Glomerular Filt Rate > 60; Glucose 106 mg/dL (65-110); Potassium 4.1 mmol/L (3.4-5.0); Sodium 140 mmol/L (137-145)
[2023-11-14 08:43] LABS: Basophils Absolute Auto 0.1 K/mm3 (0.0-0.1); Basophils Percent Auto 1.5 % (0.2-1.2); Eosinophils Absolute Auto 0.3 K/mm3 (0-0.3); Eosinophils Percent Auto 5.4 % (0-4.4); Hematocrit 47.7 % (42.0-52.0); Hemoglobin 15.2 g/dL (14.0-18.0); Immature Granulocyte Absolute 0.01 K/mm3 (0.00-0.031); Immature Granulocyte Percent A 0.2 % (0-0.5); Lymphocytes Absolute Auto 1.51 K/mm3 (0.9-3.2); Lymphocytes Percent Auto 27.9 % (18.3-44.2); Mean Corpuscular HGB Conc 31.9 g/dl (32-36); Mean Corpuscular Hemoglobin 28.5 pg (26-34); Mean Corpuscular Volume 89.3 fl (80-100); Mean Platelet Volume 10.3 fl (7.4-10.4); Monocytes Absolute Auto 0.4 K/mm3 (0.1-0.6); Monocytes Percent Auto 8.1 % (2.6-8.5); Neutrophils Absolute Auto 3.1 K/mm3 (1.3-6.7); Neutrophils Percent Auto 56.9 % (45.5-73.1); Platelet Count Result 310 k/mm3 (150-375); Red Blood Count 5.34 M/mm3 (4.6-6.20); Red Cell Distribution Width 12.4 % (11.5-14.5); White Blood Count 5.4 K/mm3 (4.5-10.0)
== END 2023-11-14 07:11 | disposition home or self-care (01) ==
PROVIDERS: PCP Family Medicine; Visit Provider Family Medicine
DX: I25.10 Atherosclerotic heart disease of native coronary artery without angina pectoris (principal); I10 Essential (primary) hypertension; G47.33 Obstructive sleep apnea (adult) (pediatric); R74.8 Abnormal levels of other serum enzymes; K58.2 Mixed irritable bowel syndrome
CPT/HCPCS: 36415; 71046; 80053; 82607; 85025; 93005

== ENCOUNTER 2024-06-09 18:13 | Emergency (ER) | payer BC, SELFPAY ==
[2024-06-09] VITALS (7 sets, daily range): BP systolic 110–152; BP diastolic 61–91; PULSE 96–132; RESP 16–21; TEMP 36.4; O2SAT 95–99
--- NOTE | ~2024-06-09 | CT_ITS ---
CTA chest PE abdomen pel Ordering provider: Masoud Catalan MD History: . abdominal pain, eval for PE, abdominal pain, n,v,d . Comparison: January 04, 2023 Technique: CT angiogram chest was performed following timed intravenous injection of contrast. Thin s lice axial images and reformatted coronal images were obtained. Three dimensional reformatted images of the chest were also obtained using a [employer] workstation. Also, CT of the abdomen and pelvis was pe rformed with IV contrast. . Automated exposure control and iterative reconstruction technique were e mployed. The dose-length product was 1012.48 mGy-cm. 100 mL Omnipaque 350 was given IV. FINDINGS: CHEST: --PULMONARY ARTERIES: No pulmonary embolus. --VISUALIZED THORACIC INLET: Normal. --MEDIASTINUM: Aorta/coronary arteries: Mild atheromatous disease. Heart/other: The heart is not enlarged. Lymph nodes: No mediastinal or hilar adenopathy. --LUNGS: dependent atelectatic changes. No pulmonary nodules or masses. No infiltrates or effusions. No pneumo thorax. --MUSCULOSKELETAL: Bones: Age appropriate degenerative changes of the spine. Minimal anterior loss of volume of T11 whic h is most likely chronic. 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 Minimal anterolisthesis se en at the same level. Superficial soft tissues: Bilateral fat containing inguinal hernias. Otherwise, The superficial soft tissues are normal. ABDOMEN/PELVIS: --MUSCULOSKELETAL: Superficial soft tissues: The superficial soft tissues are normal. Bones: Age appropriate degenerative changes of the spine. --UPPER ABDOMINAL ORGANS: Liver: Normal. Gallbladder: Status post cholecystectomy. Spleen: Normal. Stomach/duodenum: Normal. Pancreas: Normal. Adrenals: Normal. Kidneys: Normal. --PELVIC ORGANS: The bladder is normal. No bladder stones. Slightly enlarged prostate. --BOWEL AND MESENTERY: Colon: No evidence of diverticulitis. Normal appendix. Small Bowel: Slightly thickened wall of the jejunal loops which may indicate enteritis. Minimal dilat ation is seen. Follow-up advised. No obstruction. Peritoneum/mesentery: No free air or free fluid. . --RETROPERITONEUM: Mild atheromatous disease of the abdominal aorta. Abdominal aorta to maximum diam eter is 2.7 cm. No retroperitoneal lymphadenopathy. IMPRESSION: CHEST: 1. No pulmonary embolism. 2. No acute cardiopulmonary pathology. ABDOMEN/PELVIS: 1. Slightly thickened wall of the jejunal loops with slight dilatation suggestive of enteritis. Foll ow-up advised. Bilateral small fat-containing inguinal hernias. Reviewed, dictated and finalized at location A. 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 No pulmonary embolism. 2. No acute cardiopulmonary pathology. ABDOMEN/PELVIS: 1. Slightly thickened wall of the jejunal loops with slight dilatation suggest pedro of enteritis. Follow-up advised. Bilateral small fat-containing inguinal he rnias.
--- NOTE | ~2024-06-09 | XR_ITS ---
XR chest 2V Ordering provider: Melly Emanuel History: 64 years Male with . shortness of breath . Comparison: None. FINDINGS: MEDIASTINUM: The cardiac silhouette is slightly enlarged. LUNGS: No infiltrates, effusions or pneumothorax. OTHER: No free air under the diaphragm. IMPRESSION: No acute cardiopulmonary disease. Reviewed, dictated and finalized at location A. 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
--- NOTE | 2024-06-09 18:29 | ECG_ITS ---
Test Date: 2024-06-09 18:42:39 Measurements Intervals [place] Rate: 126 P: 17 [place]: 147 QRS: 5 QRSD: 90 T: 59 QT: 299 QTc: 434 Interpretive Statements SINUS TACHYCARDIA No previous ECG available for comparison Electronically Signed On 06-10-2024 15:07:08 [employer] by Clarence Horton M.D.
--- NOTE | 2024-06-09 18:30 | ED.NAVMDI ---
HPI - Nausea/Vomiting/Diarrhea General Chief complaint: Nausea/Vomiting/Diarrhea <Melly Emanuel APRN - Last Filed: 06/09/24 18:33> Stated complaint: sent by UC, dehydration, N/V/D <Melly Emanuel APRN - Last Filed: 06/09/24 18:33> Time Seen by Provider: 06/09/24 18:20 <Melly Emanuel APRN - Last Filed: 06/09/24 18:33> Focused HPI: Patient is a 64-year-old male who presents to the ER complaints of nausea, vomiting, diarrhea, leg weakness and generalized body aches for the past two days. He reports he has a history of cardiac stents, but denies any history of atrial fib. Patient reports he was recently in [place] and thought he was experiencing altitude sickness. He reports they returned to [place] around 10:00 p.m. on Sunday evening. Patient endorses shortness of breath denies any urinary symptoms. GENERAL: Ill-appearing, well-nourished, and in acute distress d/t dizziness and body aches. HEAD: Normocephalic, atraumatic. CHEST: Clear to auscultation. ?No respiratory distress. HEART: Tachycardia, regular rhythm.? NEURO: ?Alert and oriented x3. Patient screened in triage and initial orders placed.? ?Additional care and disposition to be based upon?diagnostic testing and treatment. <Melly Emanuel APRN - Last Filed: 06/09/24 18:33> History of Present Illness HPI Narrative: patient is 64 old gentleman presents emergency department chief complaint of nausea vomiting and diarrhea. Patient reports last 2 days he has had nausea vomiting diarrhea generalized weakness. Patient reports that he recently traveled from [place] reports that he had some palpitations as well after he had been vomiting. <Masoud Catalan MD - Last Filed: 06/09/24 22:51> Related Data Home medications: Home Medications Medication Instructions Recorded Confirmed aspirin 81 mg tablet,delayed 81 mg PO DAILY 03/06/23 03/03/24 release alirocumab 150 mg/mL subcutaneous 150 mg subcut Q14D 09/20/23 03/03/24 pen injector (Praluent Pen) cholecalciferol (vitamin D3) 50 50 mcg PO DAILY 09/20/23 03/03/24 mcg (2,000 unit) capsule <Melly Emanuel APRN - Last Filed: 06/09/24 18:33> Allergies/Adverse reactions: Allergies Allergy/AdvReac Type Severity Reaction Status Date / Time amoxicillin Allergy Unknown [place] Verified 03/03/24 08:04 clavulanic acid Allergy Unknown [place] Verified 03/03/24 08:04 levofloxacin Allergy Unknown Unknown Verified 03/03/24 08:04 potassium Allergy Unknown [place] Verified 03/03/24 08:04 <Melly Emanuel APRN - Last Filed: 06/09/24 18:33> Review of Systems Review of Systems: A 10 system review of systems was completed on the patient and is negative except for what is stated in the HPI. Nursing and ancillary documentation was reviewed. <Masoud Catalan MD - Last Filed: 06/09/24 22:51> PMFSH Past Medical History Medical History: Medical History Abnormal electrocardiogram [ECG] [EKG] BMI 27.0-27.9,adult BMI 28.0-28.9,adult Chronic cough Coronary artery disease COVID-19 Essential hypertension GERD (gastroesophageal reflux disease) Heart attack IBS (irritable bowel syndrome) Mixed hyperlipidemia Myalgia due to statin Osteoarthritis of left knee Pneumonia due to 2019 novel coronavirus <Melly Emanuel APRN - Last Filed: 06/09/24 18:33> Surgical History Surgical History: Surgical History H/O umbilical hernia repair History of total left knee replacement Nov 27 2023 S/P ACL repair S/P cholecystectomy S/P coronary artery stent placement Drug eluting [place] teeth removed <Melly Emanuel APRN - Last Filed: 06/09/24 18:33> Family History Family History: Family History Father Acute myocardial infarction Hypertension Mother Dementia Sibling No problems noted. Other Malignant neoplasm of prostate <Melly Emanuel APRN - Last Filed: 06/09/24 18:33> Social History Social History: Social History Smoking packs per day: 1 Smoking cigarettes per day: 20.0 Years smoked: 36 Smoking pack-years: 36.00 Smoking status: Current every day smoker Tobacco type: cigarettes and e-cigarettes/vaping Second hand tobacco smoke exposure: No Smoking end date: 07/09/10 Alcohol intake: former Substance use: never Substance use type: does not use Do You Feel Safe in your Home?: Yes Lack of Transportation: No Lack of Food: Never True Current Housing: I Have Housing Concerned About Future Housing: No Difficulty Paying Gas/Electric Bills: No Difficulty Paying for Meds: No Currently Unemployed: No Education: High School Diploma/GED Difficulty w/ Childcare or Family Care: No Living arrangements: with family Occupation/Education: occupation 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 HEAD: Normocephalic, atraumatic. EYES: PERRLA and EOMI. ENT: Nares clear, no rhinorrhea or epistaxis. Dry mucous membranes . NECK: Supple. CHEST: Clear to auscultation. No respiratory distress. HEART: tachycardic rate and rhythm. No murmur heard. Normal peripheral pulses. ABDOMEN: Soft, nontender, nondistended, normal active bowel sounds. EXTREMITIES: Normal range of motion. No edema. SKIN: Warm, dry, no rash. NEURO: No focal deficits. Alert and oriented x3. PSYCH: Normal mood and affect. <Masoud Catalan MD - Last Filed: 06/09/24 22:51> Course Vital Signs Vital signs: Vital Signs Temperature 36.4 C 06/09/24 18:15 Pulse Rate 132 H 06/09/24 18:15 Blood Pressure 110/81 06/09/24 18:15 Pulse Oximetry 98 06/09/24 18:15 Oxygen Delivery Room Air 06/09/24 18:15 Temperature 36.4 C 06/09/24 18:15 Pulse Rate 98 06/09/24 21:53 Respiratory Rate 20 06/09/24 21:53 Blood Pressure 148/91 H 06/09/24 21:53 Pulse Oximetry 99 06/09/24 21:53 Oxygen Delivery Room Air 06/09/24 18:15 <Melly Emanuel, CONTENT ADMINISTRATOR - Last Filed: 06/09/24 18:33> Vital Signs Temperature 36.4 C 06/09/24 18:15 Pulse Rate 132 H 06/09/24 18:15 Blood Pressure 110/81 06/09/24 18:15 Pulse Oximetry 98 06/09/24 18:15 Oxygen Delivery Room Air 06/09/24 18:15 Temperature 36.4 C 06/09/24 18:15 Pulse Rate 98 06/09/24 21:53 Respiratory Rate 20 06/09/24 21:53 Blood Pressure 148/91 H 06/09/24 21:53 Pulse Oximetry 99 06/09/24 21:53 Oxygen Delivery Room Air 06/09/24 18:15 <Masoud Catalan MD - Last Filed: 06/09/24 22:51> MDM - Nausea/Vomiting/Diarrhea MDM Narrative Medical decision making narrative: patient underwent laboratory testing and EKG in triage as well as receiving IV fluids. EKG showed sinus tachycardia with rate of 126. Laboratory studies showed a slightly elevated CRP at 1.2 troponin was negative electrolytes showed a CO2 of 19 BUN was 17 creatinine was 1.1 D-dimer was slightly elevated at 0.68 cbc showed a white count of 8.1 hemoglobin of 16.7 the scan of the abdomen pelvis with CTA chest showed . No pulmonary embolism. 2. No acute cardiopulmonary pathology. ABDOMEN/PELVIS: 1. Slightly thickened wall of the jejunal loops with slight dilatation suggestive of enteritis. Follow-up advised. Bilateral small fat-containing inguinal hernias. <Masoud Catalan MD - Last Filed: 06/09/24 22:51> Lab Data Result diagrams: 06/09/24 18:47 06/09/24 19:44 <Melly Emanuel, CONTENT ADMINISTRATOR - Last Filed: 06/09/24 18:33> Labs: Lab Results 06/09/24 06/09/24 06/09/24 Range/Units 18:47 19:44 21:53 WBC 8.1 (4.5-10.0) K/mm3 RBC 5.74 (4.6-6.20) M/mm3 Hgb 16.7 (14.0-18.0) g/dL Hct 49.0 (42.0-52.0) % MCV 85.4 (80-100) fl MCH 29.1 (26-34) pg MCHC 34.1 (32-36) g/dl RDW 12.9 (11.5-14.5) % Plt Count 308 (150-375) k/mm3 MPV 10.4 (7.4-10.4) fl Immature Gran % (Auto) 0.1 (0-0.5) % Neut % (Auto) 91.6 H (45.5-73.1) % Lymph % (Auto) 4.4 L (18.3-44.2) % [place] % (Auto) 2.3 L (2.6-8.5) % Eos % (Auto) 1.2 (0-4.4) % Baso % (Auto) 0.4 (0.2-1.2) % Lymph # (Auto) 0.36 L (0.9-3.2) K/mm3 [place] # (Auto) 0.2 (0.1-0.6) K/mm3 Eos # (Auto) 0.1 (0-0.3) K/mm3 Baso # (Auto) 0.0 (0.0-0.1) K/mm3 Abs Immat Gran (auto) 0.01 (0.00-0.031) K/mm3 Absolute Neuts (auto) 7.5 H (1.3-6.7) K/mm3 Absolute Nucleated RBC 0.000 (0.0-0.012) K/mm3 Nucleated RBC % 0.0 (0.0-0.2) % PT 13.2 (11.1-14.7) Seconds INR 1.0 APTT 25.9 (22.3-36.8) Seconds D-Dimer 0.68 H (<0.48) ug/mL Sodium 136 L (137-145) mmol/L Potassium 4.2 (3.4-5.0) mmol/L Chloride 106 (98-107) mmol/L Carbon Dioxide 19 L (22-30) mmol/L Anion Gap 11 (4-12) mmol/L BUN 17 (9-20) mg/dL Creatinine 1.10 (0.7-1.3) mg/dL Estim Creat Clear Calc 60 ml/min Estimated GFR > 60 (59 - ) Glucose 109 (65-110) mg/dL Lactic Acid 1.9 (0.7-2.0) mmol/L Calcium 8.6 (8.4-10.2) mg/dL Total Bilirubin 0.7 (0.2-1.3) mg/dL AST 26 (17-59) U/L ALT 29 (6-50) U/L Alkaline Phosphatase 79 (38-126) U/L Troponin I < 0.012 (0.000-0.034) ng/mL C-Reactive Protein 1.2 H (<1.0) mg/dL Total Protein 8.0 (6.3-8.2) g/dL Albumin 4.6 (3.5-5.1) g/dL Lipase 292 (23-300) U/L Urine Color Yellow (Yellow) Urine Appearance Clear (Clear) Urine pH 5.5 (5.0-9.0) Ur Specific [place] 1.026 (1.001-1.035) Urine Protein Negative (Negative) mg/dL Urine Glucose (UA) Negative (Negative) mg/dL Urine Ketones Negative (Negative) mg/dL Ur Blood (Man) Non-hemolyzed trace (Negative) Urine Nitrate Negative (Negative) Urine Bilirubin Negative (Negative) Urine Urobilinogen 0.2 (<2.0) mg/dL Leukocyte Esterase Rfl Negative (Negative) SARAH/UL Urine RBC 0-2 (0-2) /hpf Urine WBC 0-5 (0-3) /hpf Ur Squamous Epith Cells None seen (Few) /hpf Urine Bacteria None seen /hpf Urine Casts 0-2 Influenza A (RT-PCR) Negative (Negative) Influenza B (RT-PCR) Negative (Negative) RSV (RT-PCR) Negative (Negative) SARS-CoV-2 RNA (RT-PCR) Negative (Negative) <Melly Emanuel, CONTENT ADMINISTRATOR - Last Filed: 06/09/24 18:33> Lab Results 06/09/24 06/09/24 06/09/24 Range/Units 18:47 19:44 21:53 WBC 8.1 (4.5-10.0) K/mm3 RBC 5.74 (4.6-6.20) M/mm3 Hgb 16.7 (14.0-18.0) g/dL Hct 49.0 (42.0-52.0) % MCV 85.4 (80-100) fl MCH 29.1 (26-34) pg MCHC 34.1 (32-36) g/dl RDW 12.9 (11.5-14.5) % Plt Count 308 (150-375) k/mm3 MPV 10.4 (7.4-10.4) fl Immature Gran % (Auto) 0.1 (0-0.5) % Neut % (Auto) 91.6 H (45.5-73.1) % Lymph % (Auto) 4.4 L (18.3-44.2) % [place] % (Auto) 2.3 L (2.6-8.5) % Eos % (Auto) 1.2 (0-4.4) % Baso % (Auto) 0.4 (0.2-1.2) % Lymph # (Auto) 0.36 L (0.9-3.2) K/mm3 [place] # (Auto) 0.2 (0.1-0.6) K/mm3 Eos # (Auto) 0.1 (0-0.3) K/mm3 Baso # (Auto) 0.0 (0.0-0.1) K/mm3 Abs Immat Gran (auto) 0.01 (0.00-0.031) K/mm3 Absolute Neuts (auto) 7.5 H (1.3-6.7) K/mm3 Absolute Nucleated RBC 0.000 (0.0-0.012) K/mm3 Nucleated RBC % 0.0 (0.0-0.2) % PT 13.2 (11.1-14.7) Seconds INR 1.0 APTT 25.9 (22.3-36.8) Seconds D-Dimer 0.68 H (<0.48) ug/mL Sodium 136 L (137-145) mmol/L Potassium 4.2 (3.4-5.0) mmol/L Chloride 106 (98-107) mmol/L Carbon Dioxide 19 L (22-30) mmol/L Anion Gap 11 (4-12) mmol/L BUN 17 (9-20) mg/dL Creatinine 1.10 (0.7-1.3) mg/dL Estim Creat Clear Calc 60 ml/min Estimated GFR > 60 (59 - ) Glucose 109 (65-110) mg/dL Lactic Acid 1.9 (0.7-2.0) mmol/L Calcium 8.6 (8.4-10.2) mg/dL Total Bilirubin 0.7 (0.2-1.3) mg/dL AST 26 (17-59) U/L ALT 29 (6-50) U/L Alkaline Phosphatase 79 (38-126) U/L Troponin I < 0.012 (0.000-0.034) ng/mL C-Reactive Protein 1.2 H (<1.0) mg/dL Total Protein 8.0 (6.3-8.2) g/dL Albumin 4.6 (3.5-5.1) g/dL Lipase 292 (23-300) U/L Urine Color Yellow (Yellow) Urine Appearance Clear (Clear) Urine pH 5.5 (5.0-9.0) Ur Specific [place] 1.026 (1.001-1.035) Urine Protein Negative (Negative) mg/dL Urine Glucose (UA) Negative (Negative) mg/dL Urine Ketones Negative (Negative) mg/dL Ur Blood (Man) Non-hemolyzed trace (Negative) Urine Nitrate Negative (Negative) Urine Bilirubin Negative (Negative) Urine Urobilinogen 0.2 (<2.0) mg/dL Leukocyte Esterase Rfl Negative (Negative) SARAH/UL Urine RBC 0-2 (0-2) /hpf Urine WBC 0-5 (0-3) /hpf Ur Squamous Epith Cells None seen (Few) /hpf Urine Bacteria None seen /hpf Urine Casts 0-2 Influenza A (RT-PCR) Negative (Negative) Influenza B (RT-PCR) Negative (Negative) RSV (RT-PCR) Negative (Negative) SARS-CoV-2 RNA (RT-PCR) Negative (Negative) <Masoud Catalan MD - Last Filed: 06/09/24 22:51> Discharge Plan Discharge Clinical Impression: Gastroenteritis, Dehydration, Viral illness <Melly Emanuel, [place] - Last Filed: 06/09/24 18:33> Patient Disposition: Home, Self-Care <Melly Emanuel APRN - Last Filed: 06/09/24 18:33> Condition: Stable <Melly Emanuel APRN - Last Filed: 06/09/24 18:33> Instructions: Antibiotic Form, Dehydration (ED), Gastroenteritis (ED), Acute Nausea and Vomiting (ED), Acute Diarrhea (ED), Viral Syndrome (ED) <Melly Emanuel APRN - Last Filed: 06/09/24 18:33> Prescriptions: New ondansetron 4 mg tablet,disintegrating 4 mg PO Q8H PRN (Reason: nausea and vomiting) Qty: 10 0RF No Action prasugrel [Effient] 10 mg tablet 10 mg PO DAILY Qty: 30 0RF aspirin 81 mg tablet,delayed release (DR/EC) 81 mg PO DAILY Praluent Pen 150 mg/mL pen injector 150 mg subcut Q14D cholecalciferol (vitamin D3) 50 mcg (2,000 unit) capsule 50 mcg PO DAILY fluticasone propionate [Flonase Allergy Relief] 50 mcg/actuation spray,suspension 2 spray intranasal BID Qty: 16 3RF Rx Instructions: administer into each nostril. Aim back/up/out escitalopram oxalate [Lexapro] 10 mg tablet 10 mg PO DAILY Qty: 90 5RF azelastine 137 mcg (0.1 %) aerosol,spray 1 spray intranasal Q12H Qty: 30 0RF Rx Instructions: administer into each nostril omeprazole 40 mg capsule,delayed release(DR/EC) 40 mg PO DAILY Qty: 90 1RF lubiprostone 24 mcg capsule See Rx Instructions .ROUTE .COMPLEX Qty: 30 3RF Dose Instruction: TAKE 1 CAPSULE BY MOUTH DAILY Rx Instructions: TAKE 1 CAPSULE BY MOUTH DAILY <Melly Emanuel APRN - Last Filed: 06/09/24 18:33> Follow-up/Referrals: Don Hanson MD [Primary Care Provider] - <Melly mEanuel APRN - Last Filed: 06/09/24 18:33> Time of Disposition: 22:50 <Melly Emanuel APRN - Last Filed: 06/09/24 18:33> 22:50 <Masoud Catalan MD - Last Filed: 06/09/24 22:51>
[2024-06-09 18:54] LABS: Basophils Percent Auto 0.4 % (0.2-1.2); Eosinophils Absolute Auto 0.1 K/mm3 (0-0.3); Eosinophils Percent Auto 1.2 % (0-4.4); Hemoglobin 16.7 g/dL (14.0-18.0); Immature Granulocyte Absolute 0.01 K/mm3 (0.00-0.031); Immature Granulocyte Percent A 0.1 % (0-0.5); Lymphocytes Absolute Auto 0.36 K/mm3 (0.9-3.2); Lymphocytes Percent Auto 4.4 % (18.3-44.2); Mean Corpuscular HGB Conc 34.1 g/dl (32-36); Mean Corpuscular Hemoglobin 29.1 pg (26-34); Mean Corpuscular Volume 85.4 fl (80-100); Mean Platelet Volume 10.4 fl (7.4-10.4); Monocytes Absolute Auto 0.2 K/mm3 (0.1-0.6); Monocytes Percent Auto 2.3 % (2.6-8.5); Neutrophils Absolute Auto 7.5 K/mm3 (1.3-6.7); Neutrophils Percent Auto 91.6 % (45.5-73.1); Platelet Count Result 308 k/mm3 (150-375); Red Blood Count 5.74 M/mm3 (4.6-6.20); Red Cell Distribution Width 12.9 % (11.5-14.5); White Blood Count 8.1 K/mm3 (4.5-10.0)
[2024-06-09 19:08] LABS: Prothrombin Time 13.2 Seconds (11.1-14.7)
[2024-06-09 19:09] LABS: Partial Thromboplastin Time 25.9 Seconds (22.3-36.8)
[2024-06-09 19:10] LABS: Lactic Acid Reflex 1.9 mmol/L (0.7-2.0)
[2024-06-09 19:30] LABS: Influenza A QL RT-PCR Negative (Negative); Influenza B QL RT-PCR Negative (Negative); RSV RNA, RT-PCR Negative (Negative); SARS-CoV-2 RNA PCR Negative (Negative)
[2024-06-09] MEDS: ONDANSETRON INJ 4 MG/2 ML VIAL IV PUSH (19:33)
[2024-06-09] MEDS: SODIUM CHLORIDE 0.9% IV 1,000 ML 999 ML IV CONT ×2 (19:33)
[2024-06-09 20:09] LABS: D Dimer 0.68 ug/mL (<0.48)
[2024-06-09 20:14] LABS: Alanine Aminotransferase 29 U/L (6-50); Albumin Level 4.6 g/dL (3.5-5.1); Alkaline Phosphatase 79 U/L (38-126); Anion Gap 11 mmol/L (4-12); Aspartate Amino Transferase 26 U/L (17-59); Bilirubin,Total 0.7 mg/dL (0.2-1.3); Blood Urea Nitrogen 17 mg/dL (9-20); CRP 1.2 mg/dL (<1.0); Calcium 8.6 mg/dL (8.4-10.2); Carbon Dioxide 19 mmol/L (22-30); Chloride 106 mmol/L (98-107); Estimated CRCL calculation 60 ml/min; Estimated Glomerular Filt Rate > 60; Glucose 109 mg/dL (65-110); Lipase 292 U/L (23-300); Potassium 4.2 mmol/L (3.4-5.0); Sodium 136 mmol/L (137-145)
[2024-06-09 20:22] LABS: Troponin I < 0.012 ng/mL (0.000-0.034)
[2024-06-09 22:07] LABS: Add Urine Microscopic? NO; Appearance Urine Clear (Clear); Bacteria Urine None Seen /hpf; Bilirubin Urine Negative (Negative); Blood Urine Non-Hemolyzed Trace (Negative); Color Urine Yellow (Yellow); Glucose Urine UA Negative (Negative); Ketones Urine Negative (Negative); Leukocyte Esterase Ur Negative LEU/UL (Negative); Nitrate Urine Negative (Negative); Non Pathogenic Casts 0-2; Protein Urine Negative (Negative); RBC Urine 0-2 /hpf (0-2); Specific Grav Ur 1.026 (1.001-1.035); Squamous Epithelial Cell Urine None Seen /hpf (Few); Urobilinogen Urine 0.2 mg/dL (<2.0); WBC Urine 0-5 /hpf (0-3); pH Urine 5.5 (5.0-9.0)
== END 2024-06-09 23:00 | disposition home or self-care (01) ==
PROVIDERS: Registered Nurse; Emergency Provider Emergency Medicine; PCP Family Medicine
DX: K52.9 Noninfective gastroenteritis and colitis, unspecified (principal); B34.9 Viral infection, unspecified; E86.0 Dehydration; Z20.822 Contact with and (suspected) exposure to COVID-19; I25.10 Atherosclerotic heart disease of native coronary artery without angina pectoris; I10 Essential (primary) hypertension; I25.2 Old myocardial infarction; E78.2 Mixed hyperlipidemia; M17.12 Unilateral primary osteoarthritis, left knee; K21.9 Gastro-esophageal reflux disease without esophagitis; Z95.5 Presence of coronary angioplasty implant and graft; Z96.652 Presence of left artificial knee joint; Z87.01 Personal history of pneumonia (recurrent); Z86.16 Personal history of COVID-19; Z87.891 Personal history of nicotine dependence; Z90.49 Acquired absence of other specified parts of digestive tract; Z79.82 Long term (current) use of aspirin; Z79.899 Other long term (current) drug therapy; R00.0 Tachycardia, unspecified; K40.20 Bilateral inguinal hernia, without obstruction or gangrene, not specified as recurrent
CPT/HCPCS: 36415; 71046; 71275; 74177; 80053; 81003; 83605; 83690; 84484; 85025; 85380; 85610; 85730; 86140; 87040; 87637; 93005; 96361; 96374; 99284; J2405; J7030; Q9967

== ENCOUNTER 2024-07-07 08:45 | Outpatient (RCR) | payer BC, SELFPAY | END 2024-07-07 16:57 | disposition home or self-care (01) | LOC: ANHCPREHAB 08:45 | PROVIDERS: PCP Family Medicine | DX: Z95.5 Presence of coronary angioplasty implant and graft (principal) | CPT/HCPCS: 93798 ==